=== PATIENT | male | born 1965 | race Caucasian/White ===

== ENCOUNTER 2017-05-25 14:26 | Outpatient (CLI) | payer BC | END 2017-05-25 14:27 | disposition home or self-care (01) | LOC: SC 14:26 | PROVIDERS: ATTEND Internal Medicine Pulmonary Disease | DX: G47.30 Sleep apnea, unspecified (principal); G47.10 Hypersomnia, unspecified; G47.8 Other sleep disorders; R06.83 Snoring | CPT/HCPCS: 99203; 99212 ==

== ENCOUNTER 2017-06-22 12:05 | Day surgery (SDC) | payer BC ==
[2017-06-22] MEDS ORDERED: LACTATED RINGERS 1,000 ML IV ONE (12:50)
[2017-06-22] MEDS ORDERED: MIDAZOLAM 2 MG/2 ML VIAL IVP ONE (13:05)
[2017-06-22] MEDS ORDERED: fentaNYL 100 MCG/2 ML VIAL IVP ONE (13:05)
[2017-06-22 14:14] VITALS: BP 128/68
== END 2017-06-22 12:06 | disposition home or self-care (01) ==
LOC: SDS 12:05
PROVIDERS: ATTEND Surgery
PROC: 0DBL8ZX Excision of Transverse Colon, Via Natural or Artificial Opening Endoscopic, Diagnostic (ICD-10-PCS; 2017-06-22)
PROC: 0DBP8ZX Excision of Rectum, Via Natural or Artificial Opening Endoscopic, Diagnostic (ICD-10-PCS; principal; 2017-06-22 14:15)
DX: Z12.11 Encounter for screening for malignant neoplasm of colon (principal); D12.3 Benign neoplasm of transverse colon; D12.5 Benign neoplasm of sigmoid colon; D12.2 Benign neoplasm of ascending colon; K62.1 Rectal polyp
CPT/HCPCS: 45384; 45385; J7120

== ENCOUNTER 2017-08-25 09:06 | Outpatient (CLI) | payer BC | END 2017-08-25 09:07 | disposition home or self-care (01) | LOC: SC 09:06 | PROVIDERS: ATTEND Nurse Practitioner Family | DX: G47.33 Obstructive sleep apnea (adult) (pediatric) (principal) | CPT/HCPCS: 99212; 99214 ==

== ENCOUNTER 2017-10-23 19:50 | Outpatient (CLI) | payer BC | END 2017-10-23 19:51 | disposition home or self-care (01) | LOC: SC 19:50 | PROVIDERS: ATTEND Internal Medicine Pulmonary Disease | DX: G47.33 Obstructive sleep apnea (adult) (pediatric) (principal); G47.61 Periodic limb movement disorder | CPT/HCPCS: 95811 ==

== ENCOUNTER 2017-10-25 14:50 | Outpatient (CLI) | payer BC | END 2017-10-25 14:51 | disposition home or self-care (01) | LOC: SC 14:50 | PROVIDERS: ATTEND Nurse Practitioner Family | DX: G47.33 Obstructive sleep apnea (adult) (pediatric) (principal) | CPT/HCPCS: 99212; 99214 ==

== ENCOUNTER 2017-12-06 15:04 | Outpatient (CLI) | payer BC | END 2017-12-06 15:05 | disposition home or self-care (01) | LOC: SC 15:04 | PROVIDERS: ATTEND Nurse Practitioner Family | DX: G47.33 Obstructive sleep apnea (adult) (pediatric) (principal); G47.61 Periodic limb movement disorder | CPT/HCPCS: 99212; 99214 ==

== ENCOUNTER 2018-03-10 10:44 | Outpatient (CLI) | payer BC | END 2018-03-10 10:45 | disposition home or self-care (01) | LOC: SC 10:44 | PROVIDERS: ATTEND Nurse Practitioner Family | DX: G47.33 Obstructive sleep apnea (adult) (pediatric) (principal) | CPT/HCPCS: 99212; 99214 ==

== ENCOUNTER 2018-09-21 13:17 | Outpatient (CLI) | payer OTHER | END 2018-09-21 13:18 | disposition home or self-care (01) | LOC: SC 13:17 | PROVIDERS: ATTEND Nurse Practitioner Family | DX: G47.33 Obstructive sleep apnea (adult) (pediatric) (principal); G47.00 Insomnia, unspecified | CPT/HCPCS: 99212; 99214 ==

== ENCOUNTER 2019-03-14 07:15 | Outpatient (CLI) | payer OTHER ==
[2019-03-14 12:33] LABS: BASOPHILS # (AUTO) 0.1 10^3/uL (0.0-0.1); BASOPHILS % (AUTO) 1.1 %; EOSINOPHILS # (AUTO) 0.1 10^3/uL (0.0-0.7); EOSINOPHILS % (AUTO) 1.1 %; HGB - HEMOGLOBIN 13.4 g/dL (14.0-18.0); LYMPHOCYTES % (AUTO) 26.7 %; MEAN CORPUSCULAR HEMOGLOBIN 32.4 pg (27.0-31.0); MEAN CORPUSCULAR HGB CONC 31.8 g/dL (32.0-36.0); MEAN CORPUSCULAR VOLUME 101.7 fL (80.0-94.0); MEAN PLATELET VOLUME 10.2 fL (7.4-11.4); MONOCYTES # (AUTO) 0.6 10^3/uL (0.0-1.0); MONOCYTES % (AUTO) 8.5 %; NEUTROPHILS # (AUTO) 4.6 10^3/uL (1.5-6.6); NEUTROPHILS % (AUTO) 62.2 %; PLT - PLATELET COUNT 218 10^3/uL (130-450); RED BLOOD COUNT 4.14 10^6/uL (4.70-6.10); RED CELL DISTRIBUTION WIDTH 13.8 % (12.0-15.0); WHITE BLOOD COUNT 7.4 x10^3/uL (4.8-10.8)
[2019-03-14 13:11] LABS: ALBUMIN 4.3 g/dL (3.2-5.5); ALBUMIN/GLOBULIN RATIO 1.2 (1.0-2.2); ALKALINE PHOSPHATASE 70 IU/L (42-121); ALT ALANINE AMINOTRANSFERASE 73 IU/L (10-60); AST ASPARTATE AMINOTRANSFERASE 69 IU/L (10-42); BILIRUBIN,TOTAL 0.8 mg/dL (0.2-1.0); BUN - BLOOD UREA NITROGEN 9 mg/dL (6-20); CALCIUM 8.6 mg/dL (8.5-10.3); CARBON DIOXIDE - CO2 25 mmol/L (21-32); CHLORIDE 105 mmol/L (101-111); CHOL/HDL RATIO 2.7 (<5.0); CHOLESTEROL 130 mg/dL; CREATININE 0.6 mg/dL (0.6-1.2); GFR - MDRD 141 (>89); GLUCOSE 115 mg/dL (70-100); HDL CHOLESTEROL 49 mg/dL; LDL CHOLESTEROL,CALCULATED 72 mg/dL; LDL/HDL RATIO 1.5 (<3.6); SODIUM 139 mmol/L (135-145); TOTAL PROTEIN 7.9 g/dL (6.7-8.2); VLDL CHOLESTEROL 9 mg/dL
== END 2019-03-14 23:59 ==
LOC: LAB.WCP 07:15
PROVIDERS: ATTEND Family Medicine
DX: R25.1 Tremor, unspecified (principal)
CPT/HCPCS: 36415; 80053; 80061; 82607; 83721; 83921; 84153; 84443; 85025

== ENCOUNTER 2019-07-17 08:00 | Outpatient (CLI) | payer OTHER ==
[2019-07-17 12:46] LABS: HB2 TOTAL 13.8 g/dL; HEMOGLOBIN A1C 0.61 g/dL; HEMOGLOBIN A1C % 6.2 % (4.6-6.2)
[2019-07-17 12:56] LABS: ALBUMIN 4.1 g/dL (3.2-5.5); BILIRUBIN,TOTAL 0.8 mg/dL (0.2-1.0); CALCIUM 8.9 mg/dL (8.5-10.3); CREATININE 0.6 mg/dL (0.6-1.2); TOTAL PROTEIN 8.3 g/dL (6.7-8.2)
== END 2019-07-17 23:59 | disposition home or self-care (01) ==
LOC: LAB.WCP 08:00
PROVIDERS: ATTEND Family Medicine
DX: E88.81 Metabolic syndrome and other insulin resistance (principal); R94.5 Abnormal results of liver function studies
CPT/HCPCS: 36415; 80053; 83036; 84443

== ENCOUNTER 2019-10-12 13:35 | Outpatient (CLI) | payer OTHER ==
--- NOTE | 2019-10-12 14:15 | SLEEP CARE CONSULTATION ---
Information from patient questionnaire entered by Juanita Doyle. I have reviewed and concur with the information entered by Juanita Doyle. This document represents the service I personally performed and the decisions made by me, Callie Mcdonald, RN, MSN, PROVIDER NETWORK ANALYST. History of Present Illness Previous diagnosis: Very Severe, Obstructive Sleep Apnea-Hypopnea Syndrome AHI: 78.2 Reason for follow up: annual (last seen 2019) Equipment type: CPAP Equipment obtained from: [employer] Mask style: Nasal (dreamwear) Mask brand: Respironics Backup mask available: Yes (old mask ) Last cushion change: a few days ago CPAP Compliance Data - Data Reviewed with Patient Average duration of nightly device use: 6.95 Compliance rate %: 100 (180 days) Current pressure setting (cmH2O): 14-20 Humidity settin Heated hose settin Average residual AHI: 0.9 Average large leak: 0 Subjective Patient concerns: reports: mask discomfort (mild discomfort under nose intermittently - changes mask cushion every two weeks ), nasal congestion (chronic with post nasal drainage ), dry mouth, nose, throat. denies: aerophagia, air blowing in eyes, mask leak noise, condensation in mask/hose, epistaxis Observed to snore while using device: No Current pressure setting perceived as: comfortable On therapy, patient: reports: sleeping better, awakening more refreshed, being more awake and alert during the day, more rested overall, drowsiness while driving Initial [place] Sleepiness Scale score: 13 Current [place] Sleepiness Scale score: 6 Allergies and Home Medications Known drug allergies: Yes (penicillin ) Home medication list reviewed: Yes (added propanolol and clonazepam ) Allergy and home medication list: atorvastatin 20mg Hs propanolol 20mg bid clonazepam 0.5mg bid mens multivitamin daily fish oil 1200mg daily probiotic 150mg bid milk thistle 15omg bid Review of Systems Review of systems same as previous: No (essential tremor / anxiety ) Physical Exam Blood Pressure: 120/78 Cuff size: long Heart Rate: 97 O2 Saturation: 97 Height: 5 ft 8 in Weight: 242 lb 11.2 oz Body Mass Index: 36.8 BMI Classification: Obese Impression and Plan 1. Obstructive Sleep Apnea-Hypopnea Syndrome, very severe, with good treatment compliance and good apnea control. On CPAP therapy, the patient has better sleep quality and is more rested overall. To reduce mask discomfort, he is advised to not to over tighten mask. Nasal congestion and oral dryness can be reduced with increasing the CPAP humidity as shown on sample device. The heated hose can be adjusted higher if condensation with higher humidity setting. Saline nasal spray sample was also given to use prior to CPAP to clear nasal secretions and wash off any nasal allergens to facilitate nasal breathing. In addition, a steamy shower before bed will often assist nasal drainage. Printed instructions given on how to change humidity and heated hose settings with rationale explaining why to change. Patient's apnea severity and rationale for treatment to reduce apnea, improve sleep quality and reduce cardiovascular and cerebrovascular events was reviewed. I also reviewed the benefit of consistent device use of CPAP for depression/anxiety. Patient is obese and BMI 36.8. He is advised to lose weight and advised of health risks of obesity and relationship of his weight to his apnea risk and CPAP pressure. Symptoms to report for adjustment of pressure discussed if significant weight change. For questions about transfer when he moves, he is advised to establish with PCP and then with sleep provider for continuity of care. * Continue CPAP pressure at 14-20 cmH2O * Loosen mask * Implement measures to reduce nasal congestions * Notify me if snoring with mask or feeling that the pressure is too much or too little * Attempt to lose weight * Call this office if any problems using CPAP * Return for follow up in 1 year if change in moving plans , or sooner if concerns arise Time Spent with Patient (minutes): 30 I spent 100% of this visit face to face with the patient with greater than 50% of this was spent time counseling the patient and coordination of care.
[2019-10-12 14:16] VITALS: BP 120/78
== END 2019-10-12 13:36 | disposition home or self-care (01) ==
LOC: SC 13:35
PROVIDERS: ATTEND Nurse Practitioner Family
DX: G47.33 Obstructive sleep apnea (adult) (pediatric) (principal); E66.9 Obesity, unspecified; Z68.36 Body mass index [BMI] 36.0-36.9, adult
CPT/HCPCS: 99212; 99214

== ENCOUNTER 2020-02-15 15:28 | Outpatient (CLI) | payer OTHER ==
[2020-02-15 18:18] LABS: BASOPHILS # (AUTO) 0.1 10^3/uL (0.0-0.1); BASOPHILS % (AUTO) 0.9 %; EOSINOPHILS # (AUTO) 0.1 10^3/uL (0.0-0.7); EOSINOPHILS % (AUTO) 1.7 %; LYMPHOCYTES # (AUTO) 2.5 10^3/uL (1.5-3.5); LYMPHOCYTES % (AUTO) 31.7 %; MEAN CORPUSCULAR HEMOGLOBIN 33.6 pg (27.0-31.0); MEAN CORPUSCULAR VOLUME 101.7 fL (80.0-94.0); MEAN PLATELET VOLUME 10.5 fL (7.4-11.4); MONOCYTES # (AUTO) 0.7 10^3/uL (0.0-1.0); MONOCYTES % (AUTO) 8.4 %; NEUTROPHILS # (AUTO) 4.4 10^3/uL (1.5-6.6); NEUTROPHILS % (AUTO) 56.9 %; PLT - PLATELET COUNT 192 10^3/uL (130-450); RED BLOOD COUNT 4.17 10^6/uL (4.70-6.10); RED CELL DISTRIBUTION WIDTH 13.3 % (12.0-15.0); WHITE BLOOD COUNT 7.8 x10^3/uL (4.8-10.8)
== END 2020-02-15 15:29 | disposition home or self-care (01) ==
LOC: LAB.WCP 15:28
PROVIDERS: ATTEND Family Medicine
DX: R23.2 Flushing (principal)
CPT/HCPCS: 36415; 85025

== ENCOUNTER 2020-03-22 07:30 | Outpatient (CLI) | payer OTHER ==
[2020-03-22 11:47] LABS: ALKALINE PHOSPHATASE 79 IU/L (42-121); ALT ALANINE AMINOTRANSFERASE 69 IU/L (10-60); AST ASPARTATE AMINOTRANSFERASE 61 IU/L (10-42); BILIRUBIN,TOTAL 0.9 mg/dL (0.2-1.0); BUN - BLOOD UREA NITROGEN 10 mg/dL (6-20); CALCIUM 8.9 mg/dL (8.5-10.3); CARBON DIOXIDE - CO2 26 mmol/L (21-32); CHLORIDE 102 mmol/L (101-111); CHOL/HDL RATIO 2.8 (<5.0); CHOLESTEROL 94 mg/dL; CREATININE 0.6 mg/dL (0.6-1.2); GLUCOSE 119 mg/dL (70-100); HDL CHOLESTEROL 33 mg/dL; LDL CHOLESTEROL,CALCULATED 46 mg/dL; LDL/HDL RATIO 1.4 (<3.6); SODIUM 137 mmol/L (135-145); TOTAL PROTEIN 7.9 g/dL (6.7-8.2); VLDL CHOLESTEROL 15 mg/dL
[2020-03-22 12:31] LABS: HB2 TOTAL 14.6 g/dL; HEMOGLOBIN A1C 0.55 g/dL; HEMOGLOBIN A1C % 5.6 % (4.6-6.2)
== END 2020-03-22 23:59 | disposition home or self-care (01) ==
LOC: LAB.WCP 07:30
PROVIDERS: ATTEND Family Medicine
DX: E88.81 Metabolic syndrome and other insulin resistance (principal); E78.5 Hyperlipidemia, unspecified; Z12.5 Encounter for screening for malignant neoplasm of prostate
CPT/HCPCS: 36415; 80053; 80061; 83036; 83721; 84153; 84443

== ENCOUNTER 2020-08-30 07:47 | Outpatient (CLI) | payer OTHER ==
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
== END 2020-08-30 07:48 | disposition home or self-care (01) ==
LOC: SC 07:47
PROVIDERS: ATTEND Nurse Practitioner Family
DX: G47.33 Obstructive sleep apnea (adult) (pediatric) (principal); E66.9 Obesity, unspecified; Z68.38 Body mass index [BMI] 38.0-38.9, adult
CPT/HCPCS: 99212; 99213

== ENCOUNTER 2020-12-12 07:54 | Outpatient (CLI) | payer OTHER ==
--- NOTE | 2020-12-12 08:14 | SLEEP CARE CONSULTATION ---
Information from patient questionnaire entered by Juanita Doyle. I have reviewed and concur with the information entered by Juanita Doyle. This document represents the service I personally performed and the decisions made by , Romana Moy ARNP. History of Present Illness Service Date and Time: 12/12/2020 0754 Previous diagnosis: Very Severe, Obstructive Sleep Apnea-Hypopnea Syndrome AHI: 78.2 (in 2017) Reason for follow up: first compliance after device update Equipment type: CPAP Equipment obtained from: [employer] (getting supplies as needed) Mask style: Nasal Mask brand: Respironics (Dreamwear) Backup mask available: Yes (old mask) Last cushion change: 1 week Prior sleep studies: Yes Year and Where: 2017 - [facility] Type of Sleep Study: Home sleep study HPI additional information: FELI CHENEY was diagnosed to have very severe, AHI 78.2, obstructive sleep apnea-hypopnea syndrome and returned today for CPAP therapy first compliance after updating device follow-up. CPAP Compliance Data - Data Reviewed with Patient Average duration of nightly device use: 7 hours 27 minutes Compliance rate %: 100 Current pressure setting (cmH2O): 14-20 Humidity settin Heated hose settin Average residual AHI: 1.0 Average large leak: 0 secs Subjective Patient concerns: denies: aerophagia, mask discomfort, air blowing in eyes, mask leak noise, condensation in mask/hose, nasal congestion, dry mouth, nose, throat, epistaxis, other Observed to snore while using device: No Current pressure setting perceived as: comfortable On therapy, patient: reports: sleeping better, awakening more refreshed, being more awake and alert during the day, more rested overall. denies: drowsiness while driving Initial [place] Sleepiness Scale score: 13 ( 2017) Current [place] Sleepiness Scale score: 4 Allergies and Home Medications Home medication list reviewed: Yes (no new meds) Review of Systems Review of systems same as previous: Yes (no changes) Physical Exam Heart Rate: 72 O2 Saturation: 98 Height: 5 ft 8 in Weight: 243 lb Body Mass Index: 36.9 BMI Classification: Obese Impression and Plan 1. Obstructive Sleep Apnea-Hypopnea Syndrome, very severe, with excellent treatment compliance and excellent apnea control. On CPAP therapy, the patient has better sleep quality and is more rested overall. He has significant improvement of his apneas and is satisfied with his treatment. He has no concerns with his CPAP use. He denies oral dryness, aerophagia, epistaxis or skin irritation. Patient's apnea severity and rationale for treatment to reduce apnea, improve sleep quality and reduce cardiovascular and cerebrovascular events was reviewed. I also reviewed the benefit of consistent device use of CPAP for depression/anxiety. * Continue autoCPAP pressure at 14-20 cmH2O * Notify me if snoring with mask or feeling that the pressure is too much or too little * Attempt to lose weight * Call this office if any problems using CPAP * Return for follow up in 1 year, or sooner if concerns arise Counseling Topics: Spare mask, Weight loss health impact Visit Type: In Office Time Spent with Patient (minutes): 15 Provider Statement: I spent 100% of the Face to Face Visit with the patient with greater than 50% spent counseling the patient and coordination of care.
== END 2020-12-12 07:55 | disposition home or self-care (01) ==
LOC: SC 07:54
PROVIDERS: ATTEND Nurse Practitioner Family
DX: G47.33 Obstructive sleep apnea (adult) (pediatric) (principal); E66.9 Obesity, unspecified; Z68.36 Body mass index [BMI] 36.0-36.9, adult
CPT/HCPCS: 99212

== ENCOUNTER 2021-01-27 09:36 | Outpatient (CLI) | payer OTHER ==
--- NOTE | 2021-01-27 10:10 | SLEEP CARE CONSULTATION ---
Information from patient questionnaire entered by Juanita Doyle. I have reviewed and concur with the information entered by Juanita Doyle. This document represents the service I personally performed and the decisions made by me, Nicholas Morales MD, [facility]. History of Present Illness Service Date and Time: 01/27/2021 0936 Previous diagnosis: Very Severe, Obstructive Sleep Apnea-Hypopnea Syndrome AHI: 78.2 (in 2017) Reason for follow up: other (6 week; questions about CPAP recall and symptoms) Equipment type: CPAP Equipment obtained from: [employer] Mask style: Nasal Prior sleep studies: Yes Year and Where: 2017 - [facility] Type of Sleep Study: Home sleep study HPI additional information: HPI: Mr. Clement was diagnosed to have very severe (AHI 78.2) obstructive sleep apnea-hypopnea syndrome returned today for his annual follow up. He continues to use his Respironics DreamStation autoCPAP that he just got in October. In regards to the recall on all [employer] Respironics DreamStation devices, we discussed the risks and benefits of stopping versus continuing to use the device. In severe cases, it appears the benefits outweigh the risks and it is reasonable to continue until the replace part or machine becomes available. Symptoms that could be related to the recalled sound abatement foam piece are headache, nausea, chest tightness, and upper airway irritation. The patients should also look for debris in the air outlet, water reservoir, and hose. If found, the device should not be used. In [id number] cases, the patients should refrain from using the device. CPAP Compliance Data - Data Reviewed with Patient Average duration of nightly device use: 6 hr 41 min Compliance rate %: 100 Current pressure setting (cmH2O): 14-20 Humidity settin Heated hose settin Average residual AHI: 0.7 Average large leak: 0 Subjective Current pressure setting perceived as: comfortable Initial [place] Sleepiness Scale score: 13 (in 2017) Current [place] Sleepiness Scale score: 4 Allergies and Home Medications Drug allergies reviewed: Yes Home medication list reviewed: Yes Review of Systems Review of systems same as previous: Yes Physical Exam Height: 5 ft 8 in Weight: 242 lb Body Mass Index: 36.8 BMI Classification: Obese Impression and Plan IMPRESSION: 1. Obstructive Sleep Apnea-Hypopnea Syndrome, very severe, with good treatment compliance and apnea control. The patient reports symptoms of nausea and cough for the past year. I recommend he switches to a different CPAP. PLAN: 1. Prescription mace for a ResMed AirSense 10. * Return for follow up after a month on the new machine. Visit Type: In Office Time Spent with Patient (minutes): 15 Provider Statement: I spent 100% of the Face to Face Visit with the patient with greater than 50% spent counseling the patient and coordination of care.
== END 2021-01-27 09:37 | disposition home or self-care (01) ==
LOC: SC 09:36
PROVIDERS: ATTEND Internal Medicine Pulmonary Disease
DX: G47.33 Obstructive sleep apnea (adult) (pediatric) (principal); E66.9 Obesity, unspecified; Z68.36 Body mass index [BMI] 36.0-36.9, adult
CPT/HCPCS: 99212

== ENCOUNTER 2021-06-16 07:44 | Outpatient (CLI) | payer OTHER ==
[2021-06-16 12:00] LABS: BASOPHILS # (AUTO) 0.1 10^3/uL (0.0-0.1); BASOPHILS % (AUTO) 1.3 %; EOSINOPHILS # (AUTO) 0.2 10^3/uL (0.0-0.7); EOSINOPHILS % (AUTO) 2.1 %; HCT - HEMATOCRIT 46.3 % (42.0-52.0); HGB - HEMOGLOBIN 15.2 g/dL (14.0-18.0); LYMPHOCYTES # (AUTO) 2.6 10^3/uL (1.5-3.5); LYMPHOCYTES % (AUTO) 30.5 %; MEAN CORPUSCULAR HEMOGLOBIN 33.9 pg (27.0-31.0); MEAN CORPUSCULAR HGB CONC 32.8 g/dL (32.0-36.0); MEAN CORPUSCULAR VOLUME 103.3 fL (80.0-94.0); MEAN PLATELET VOLUME 11.3 fL (7.4-11.4); MONOCYTES # (AUTO) 0.9 10^3/uL (0.0-1.0); MONOCYTES % (AUTO) 10.5 %; NEUTROPHILS # (AUTO) 4.8 10^3/uL (1.5-6.6); NEUTROPHILS % (AUTO) 55.4 %; PLT - PLATELET COUNT 196 10^3/uL (130-450); RED BLOOD COUNT 4.48 10^6/uL (4.70-6.10); RED CELL DISTRIBUTION WIDTH 13.3 % (12.0-15.0); WHITE BLOOD COUNT 8.7 x10^3/uL (4.8-10.8)
[2021-06-16 12:29] LABS: BILIRUBIN,TOTAL 1.8 mg/dL (0.2-1.0); CREATININE 0.6 mg/dL (0.6-1.2); POTASSIUM 4.3 mmol/L (3.5-5.0); TOTAL PROTEIN 8.1 g/dL (6.7-8.2)
[2021-06-19 12:36] LABS: ESTIMATED AVERAGE GLUCOSE 169 mg/dL (70-100); HEMOGLOBIN A1c% 7.5 % (4.27-6.07)
== END 2021-06-16 07:45 | disposition home or self-care (01) ==
LOC: LAB.N 07:44
PROVIDERS: ATTEND Physician Assistant
DX: Z00.00 Encounter for general adult medical examination without abnormal findings (principal); R79.89 Other specified abnormal findings of blood chemistry
CPT/HCPCS: 36415; 80053; 83036; 85025

== ENCOUNTER 2021-11-11 09:11 | Outpatient (CLI) | payer OTHER ==
[2021-11-11 13:44] LABS: CREATININE,URINE 135.1 mg/dL; MICROALBUM/CREATININE RATIO,UR 52.6 ug/mg (<30.0); MICROALBUMIN,URINE 7.1 mg/dL (0-300.0)
[2021-11-11 13:45] LABS: % IRON SATURATION 28 % (20-50); ALBUMIN 4.3 g/dL (3.2-5.5); ALKALINE PHOSPHATASE 104 IU/L (42-121); ALT ALANINE AMINOTRANSFERASE 56 IU/L (10-60); AST ASPARTATE AMINOTRANSFERASE 73 IU/L (10-42); BILIRUBIN,TOTAL 1.8 mg/dL (0.2-1.0); BUN - BLOOD UREA NITROGEN 7 mg/dL (6-20); CALCIUM 8.4 mg/dL (8.5-10.3); CARBON DIOXIDE - CO2 26 mmol/L (21-32); CHLORIDE 94 mmol/L (101-111); CHOL/HDL RATIO 2.7 (<5.0); CHOLESTEROL 139 mg/dL; CREATININE 0.7 mg/dL (0.6-1.2); GFR - MDRD 117 (>89); GLUCOSE 132 mg/dL (70-100); HDL CHOLESTEROL 51 mg/dL; IRON 115 ug/dL (45-182); LDL CHOLESTEROL,CALCULATED 70 mg/dL; LDL/HDL RATIO 1.4 (<3.6); POTASSIUM 3.8 mmol/L (3.5-5.0); SODIUM 131 mmol/L (135-145); TOTAL IRON BINDING CAPACITY 406 ug/dL (250-450); TOTAL PROTEIN 8.4 g/dL (6.7-8.2); TRANSFERRIN 290 mg/dL (180-329); TRIGLYCERIDES 90 mg/dL; VLDL CHOLESTEROL 18 mg/dL
[2021-11-11 14:06] LABS: ESTIMATED AVERAGE GLUCOSE 146 mg/dL (70-100); HEMOGLOBIN A1c% 6.7 % (4.27-6.07)
[2021-11-12 10:01] LABS: HEPATITIS B SURFACE ANTIGEN NON-REACTIVE (NON-REACTIVE); HEPATITIS C ANTIBODY NON-REACTIVE (NON-REACTIVE)
== END 2021-11-11 09:12 | disposition home or self-care (01) ==
LOC: LAB.N 09:11
PROVIDERS: ATTEND Internal Medicine
DX: E11.9 Type 2 diabetes mellitus without complications (principal); R79.89 Other specified abnormal findings of blood chemistry; Z12.5 Encounter for screening for malignant neoplasm of prostate
CPT/HCPCS: 36415; 80053; 80061; 82043; 82570; 82728; 83036; 83540; 83721; 84153; 84466; 86704; 86803; 87340

== ENCOUNTER 2021-12-31 10:51 | Outpatient (CLI) | payer OTHER ==
[2021-12-31 11:32] VITALS: BP 126/78
--- NOTE | 2021-12-31 11:32 | SLEEP CARE CONSULTATION ---
Information from patient questionnaire entered by Maria Dang MA. I have reviewed and concur with the information entered by Maria Dang MA. This document represents the service I personally performed and the decisions made by , Romana Moy ARNP. History of Present Illness Service Date and Time: 12/31/2021 1051 Previous diagnosis: Very Severe, Obstructive Sleep Apnea-Hypopnea Syndrome AHI: 78.2 (in 2017) Reason for follow up: other (11 MONTH F/U, PT IS MOVING, JONEL, ) Equipment type: CPAP Equipment obtained from: [employer] (getting supplies when needed) Mask style: Nasal Backup mask available: Yes (old mask) Last cushion change: 1 week Prior sleep studies: Yes Year and Where: 2016 - [facility] Type of Sleep Study: Home sleep study HPI additional information: FELI CHENEY was diagnosed to have very severe, AHI 78.2, obstructive sleep apnea-hypopnea syndrome and returned today for CPAP therapy 11 month follow-up. Sleep Study - Results Type of Sleep Study: Home sleep study Prior sleep studies: Yes Year and Where: 2017 - [facility] CPAP Compliance Data - Data Reviewed with Patient Average duration of nightly device use: 7 hours 16 minutes Compliance rate %: 98.9 (180; 179/180 usage) Current pressure setting (cmH2O): 14-20 Average residual AHI: 1.0 Central apnea: 0.2 Obstructive apnea: 0.6 Average large leak: 0 secs Subjective Missed days of use due to: reports: illness (had a cold) Patient concerns: denies: aerophagia, mask discomfort, air blowing in eyes, mask leak noise, condensation in mask/hose, nasal congestion, dry mouth, nose, throat, epistaxis, other Observed to snore while using device: No Current pressure setting perceived as: comfortable On therapy, patient: reports: sleeping better, awakening more refreshed, being more awake and alert during the day, more rested overall. denies: drowsiness while driving Initial [place] Sleepiness Scale score: 13 (in 2016) Current [place] Sleepiness Scale score: 4 (2021) Allergies and Home Medications Known drug allergies: Yes ([employer]) Home medication list reviewed: Yes (no changes) Allergy and home medication list: Allergies Penicillins Allergy (Verified 06/21/17 15:46) Rash Review of Systems Review of systems same as previous: Yes (no changes) Physical Exam Vital signs obtained and entered by: CARMEN STRONG Blood Pressure: 126/78 (left, resp 18, pulse 92) Heart Rate: 92 O2 Saturation: 98 (paper mask) Height: 5 ft 8 in Weight: 238 lb Weight change since last visit: 4 lb loss Body Mass Index: 36.1 BMI Classification: Obese Impression and Plan 1. Obstructive Sleep Apnea-Hypopnea Syndrome, very severe, with good treatment compliance and good apnea control. On CPAP therapy, the patient has better sleep quality and is more rested overall. Patient is moving and would like to transfer his CPAP supplies to a more national company. I will write for a transfer of DME today. I will have my online content coordinator inform of DME options. Patient advised to contact this office if further supply problems. Patient denies problems with oral dryness, nasal congestion, epistaxis, skin irritation or aerophagia. Patient's apnea severity and rationale for treatment to reduce apnea, improve sleep quality and reduce cardiovascular and cerebrovascular events was reviewed. I also reviewed the benefit of consistent device use of CPAP for depression/anxiety. Patient is aware of the recall on his device and has registered for the recall. He has not noticed any debris in his machine. He is not using an ozone or ultraviolet flight radio operator on his machine. He is monitoring for any changes until he is able to upgrade. 2. Obesity, unspecified. Patient has lost weight. Currently patients BMI is 36.1. Obesity increases the risk of apnea, CPAP pressure requirements and overall health risks especially cardiovascular and diabetes. Thus patient is a dvised to continue to try to lose weight. Weight loss can be done with reducing portion size, reducing refined foods and balancing content with vegetables, fruit and whole grain foods. In addition, patient encouraged to get regular exercise. The patient's CPAP pressure range should accommodate some weight loss. Symptoms to report for additional pressure adjustment discussed. * Continue auto CPAP pressure at 14-20 cmH2O * Transfer DME * Notify me if snoring with mask or feeling that the pressure is too much or too little * Attempt to lose weight * Call this office if any problems using CPAP * Return for follow up in 1 year, or sooner if concerns arise Counseling Topics: Spare mask, Weight loss health impact Visit Type: In Office Time Spent with Patient (minutes): 23 Provider Statement: I spent 100% of the Face to Face Visit with the patient with greater than 50% spent counseling the patient and coordination of care.
== END 2021-12-31 10:52 | disposition home or self-care (01) ==
LOC: SC 10:51
PROVIDERS: ATTEND Nurse Practitioner Family
DX: G47.33 Obstructive sleep apnea (adult) (pediatric) (principal); E66.9 Obesity, unspecified; Z68.36 Body mass index [BMI] 36.0-36.9, adult
CPT/HCPCS: 99212; 99213